=== PATIENT | male | born 1990 | race Caucasian/White ===

== ENCOUNTER 2022-06-02 13:59 | Emergency (ER) | payer OTHER, SELFPAY ==
[2022-06-02 14:00] VITALS: BP 156/103; PULSE 99; RESP 18; TEMP 36.1; O2SAT 99; BMI 33.4
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
[2022-06-02] MEDS: methocarbamoL 500 MG TABLET 750 MG PO (16:07)
[2022-06-02] MEDS: TRAMADOL 50 MG TABLET PO (16:08)
[2022-06-02 16:27] VITALS: BP 146/79; PULSE 84; RESP 18; O2SAT 97
== END 2022-06-02 16:29 | disposition home or self-care (01) ==
PROVIDERS: Emergency Provider Physician Assistant Medical
DX: S16.1XXA Strain of muscle, fascia and tendon at neck level, initial encounter (principal); V43.52XA Car driver injured in collision with other type car in traffic accident, initial encounter; Y92.413 State road as the place of occurrence of the external cause
CPT/HCPCS: 72040; 99283